=== PATIENT | female | born 1960 | race Caucasian/White ===

== ENCOUNTER 2022-11-20 11:00 | Inpatient (IN) | payer MEDICAID ==
[~2022-11-20] VITALS: Ht 165.1 cm; Wt 119.7 kg
[2022-11-20] MEDS: CLINDAMYCIN HCL 150MG CAPSULE PO SCH (06:00)
[2022-11-20 11:38] LABS: HEMATOCRIT. 37.2 % (36.0-48.0); HEMOGLOBIN. 12.7 g/dL (12.0-16.0); MEAN CORPUSCULAR HEMOGLOBIN 31.1 pg (28.0-32.0); MEAN CORPUSCULAR VOLUME 91.4 fL (81.0-99.0); MEAN PLATELET VOLUME 8.9 fl (7.4-10.4); PLATELET 226 x1000/uL (130-400); RED BLOOD CELL COUNT 4.07 mill/uL (4.2-5.4); RED CELL DISTRIBUTION WIDTH 12.6 % (11.6-14.6)
[2022-11-20 12:03] LABS: CHLORIDE 90 mEq/L (98-107)
[2022-11-20] MEDS ORDERED: SODIUM CHLORIDE 0.9% 1,000 ML IV SCH (12:30)
[2022-11-20] MEDS ORDERED: PIPERACILLIN/TAZOBACTAM 3.375GM/50ML PREMIX IV SCH (12:30)
[2022-11-20] MEDS ORDERED: VANCOMYCIN 1G PREMIX 200 ML IV SCH (12:30)
[2022-11-20 12:34] LABS: PLATELET ESTIMATE NORMAL
[2022-11-20] MEDS ORDERED: ONDANSETRON HCL 4MG/2ML INJ IV ONE (12:45)
[2022-11-20] MEDS ORDERED: MORPHINE SULFATE 4 MG/ML CPJ (NOT FOR IM USE) IV ONE (12:45)
[2022-11-20] MEDS ORDERED: SODIUM CHLORIDE 0.9% 1,000 ML IV ONE ×2 (12:45→13:00)
[2022-11-20] MEDS ORDERED: POTASSIUM CHLORIDE INJ 40 MEQ in DEXT 5% WATER 250 ML IV SCH (13:00)
[2022-11-20 13:01] LABS: INR 1.3; PROTHROMBIN TIME 13.5 sec (9.6-11.0)
[2022-11-20 14:26] LABS: BETA HYDROXYBUTYRATE 2.1 mMol/L (0.0-0.3)
[2022-11-20 15:25] LABS: CLARITY URINE CLOUDY (CLEAR); COLOR URINE YELLOW (YELLOW); KETONES URINE 2+ (NEGATIVE); LEUKOCYTE ESTERASE URINE NEGATIVE (NEGATIVE); NITRITE URINE NEGATIVE (NEGATIVE); OCCULT BLOOD URINE TRACE (NEGATIVE); PH URINE 5.5 (4.5-8.0); PROTEIN URINE 2+ (NEGATIVE); SPECIFIC GRAVITY URINE 1.037 (1.005-1.030)
[2022-11-20] MEDS ORDERED: INSULIN REGULAR (HUMULIN R) 300UNITS/3ML VIAL SUBCUT NR (17:15)
[2022-11-20] MEDS ORDERED: MAGNESIUM/ALUMINUM HYDROXIDE/SIMETHICONE 30ML UDC PO PRN (17:30)
[2022-11-20] MEDS ORDERED: HYDROCODONE/ACETAMINOPHEN 5/325MG TABLET PO PRN (17:30)
[2022-11-20] MEDS ORDERED: NA PHOS,M-B/NA PHOS,DI-BA ENEMA 118ML PR PRN (17:30)
[2022-11-20] MEDS ORDERED: CLONIDINE 0.1MG TABLET PO PRN (17:30)
[2022-11-20] MEDS ORDERED: ACETAMINOPHEN 325MG TABLET PO PRN ×2 (17:30)
[2022-11-20] MEDS ORDERED: DEXTROSE 50% WATER 50ML SYRINGE IV PRN (17:30)
[2022-11-20] MEDS ORDERED: GUAIFENESIN 200MG/10ML SUGAR FREE UDC PO PRN (17:30)
[2022-11-20] MEDS ORDERED: IPRATROPIUM/ALBUTEROL 0.5-3(2.5)MG/3ML NEB NEB PRN (17:30)
[2022-11-20] MEDS: ENOXAPARIN 30MG/0.3ML SYR SUBCUT SCH (18:27)
[2022-11-20] MEDS: SODIUM CHLORIDE 0.9% 1,000 ML IV SCH (18:27)
[2022-11-20] MEDS ORDERED: CLINDAMYCIN 600 MG in DEXTROSE 5% WATER 50 ML IV ONE (21:00)
[2022-11-20] MEDS ORDERED: PIPERACILLIN/TAZ 3.375G PREMIX 50 ML IV NR (22:00)
[2022-11-20] MEDS: BLOOD SUGAR DIAGNOSTIC STRIP TEST SCH (22:00)
[2022-11-20] MEDS ORDERED: PROPOFOL 200MG/20ML VIAL IV ONE (22:05)
[2022-11-20] MEDS: INSULIN LISPRO 100 UNITS/ML SUBCUT SCH (22:09)
[2022-11-20] MEDS ORDERED: MIDAZOLAM HCL 2 MG/2 ML VIAL ONE (22:09)
[2022-11-20] MEDS ORDERED: ONDANSETRON HCL 4MG/2ML INJ ONE (22:15)
[2022-11-20] MEDS ORDERED: SUCCINYLCHOLINE CHLORIDE 200MG/10ML IV ONE (22:16)
[2022-11-20] MEDS ORDERED: DEXAMETHASONE 4MG/ML 1ML VIAL ONE (22:16)
[2022-11-20] MEDS ORDERED: ALBUMIN HUMAN 12.5GM/50ML (25%) IV ONE (22:46)
[2022-11-20] MEDS ORDERED: ROCURONIUM BROMIDE 10MG/ML VIAL 5ML IV ONE (22:59)
[2022-11-20] MEDS ORDERED: FENTANYL CITRATE/PF 50MCG/ML 2ML VIAL ONE (23:07)
[2022-11-20] MEDS ORDERED: FENTANYL CITRATE/PF 50MCG/ML 2ML VIAL IV PRN (23:45)
[2022-11-21] VITALS (57 sets, daily range): BP systolic 120–189; BP diastolic 48–142
[2022-11-21] MEDS ORDERED: VANCOMYCIN 750MG PREMIX 150 ML IV SCH
[2022-11-21] MEDS ORDERED: VANCOMYCIN 750 MG in DEXT 5% WATER 250 ML IV SCH ×2
[2022-11-21] MEDS: PROPOFOL 10MG/ML 100ML 100 ML IV PRN ×4 (00:14→10:05)
[2022-11-21 01:09] LABS: BG BASE EXCESS -4.9 mmol/L (-2.0-2.0); BG CARBOXYHEMOGLOBIN 0.3 % (0.5-1.5); BG DEOXYHEMOGLOBIN 1.4 % (0.0-5.0); BG FRACTION INSPIRED OXYGEN 100; BG METHEMOGLOBIN 0.3 % (0.0-1.5); BG OXYGEN SATURATION 98.6 % (92.0-98.5); BG PCO2 47.9 mmHg (35.0-45.0); BG PO2 154.3 mmHg (75.0-100.0); BG SAMPLE SITE RIGHT RADIAL; BG TOTAL HEMOGLOBIN 13.4 g/dL (12.0-18.0); BG TOTAL RESPIRATORY RATE 14 b/min; BG VENT MODE VENT - AC
[2022-11-21] MEDS: SODIUM CHLORIDE 0.9% 1,000 ML IV SCH ×4 (01:31→20:54)
[2022-11-21] MEDS ORDERED: SODIUM BICARBONATE 8.4% 1 MEQ/ML 50ML SYR IV NR (04:00)
[2022-11-21 04:57] LABS: HEMATOCRIT. 32.1 % (36.0-48.0); HEMOGLOBIN. 10.6 g/dL (12.0-16.0); MEAN CORPUSCULAR HEMOGLOBIN 30.6 pg (28.0-32.0); MEAN CORPUSCULAR VOLUME 92.2 fL (81.0-99.0); MEAN PLATELET VOLUME 9.3 fl (7.4-10.4); PLATELET 189 x1000/uL (130-400); RED BLOOD CELL COUNT 3.48 mill/uL (4.2-5.4); RED CELL DISTRIBUTION WIDTH 12.8 % (11.6-14.6)
[2022-11-21 05:03] LABS: CHLORIDE 97 mEq/L (98-107)
[2022-11-21 05:12] LABS: HDL CHOLESTEROL 9 mg/dL (40-59); LDL CHOLESTEROL 39 mg/dL (5-100); PHOSPHORUS 2.6 mg/dL (2.5-4.9)
[2022-11-21] MEDS: BLOOD SUGAR DIAGNOSTIC STRIP TEST SCH ×6 (05:32→20:48)
[2022-11-21] MEDS: ENOXAPARIN 30MG/0.3ML SYR SUBCUT SCH ×2 (05:41→18:15)
[2022-11-21] MEDS ORDERED: PIPERACILLIN/TAZOBACTAM 3.375 G in DEXTROSE 5% WATER 50 ML IV SCH (06:00)
[2022-11-21] MEDS: CLINDAMYCIN HCL 150MG CAPSULE PO SCH ×3 (06:00→20:54)
[2022-11-21] MEDS: INSULIN LISPRO 100 UNITS/ML SUBCUT SCH ×7 (06:03→22:00)
[2022-11-21 07:10] LABS: PLATELET ESTIMATE NORMAL
[2022-11-21 08:07] LABS: BG BASE EXCESS -1.9 mmol/L (-2.0-2.0); BG CARBOXYHEMOGLOBIN 0.2 % (0.5-1.5); BG DEOXYHEMOGLOBIN 3.7 % (0.0-5.0); BG HCO3 ACT 21.8 mmol/L (22.0-26.0); BG METHEMOGLOBIN 0.1 % (0.0-1.5); BG OXYGEN SATURATION 96.3 % (92.0-98.5); BG PCO2 33.5 mmHg (35.0-45.0); BG PH 7.432 (7.350-7.450); BG PO2 82.4 mmHg (75.0-100.0); BG SAMPLE SITE RIGHT RADIAL; BG TOTAL HEMOGLOBIN 11.1 g/dL (12.0-18.0); BG VENT MODE VENT - AC
[2022-11-21] MEDS: INSULIN GLARGINE 100 UNITS/ML SUBCUT SCH ×2 (08:42→11:10)
[2022-11-21] MEDS ORDERED: INSULIN LISPRO 100 UNITS/ML SUBCUT ONE (08:45)
[2022-11-21] MEDS ORDERED: NALOXONE HCL 0.4MG/ML VIAL IV PRN (10:00)
[2022-11-21 11:50] LABS: BG BASE EXCESS 0.5 mmol/L (-2.0-2.0); BG CARBOXYHEMOGLOBIN 0.2 % (0.5-1.5); BG DEOXYHEMOGLOBIN 3.9 % (0.0-5.0); BG OXYGEN SATURATION 96.1 % (92.0-98.5); BG OXYHEMOGLOBIN 95.9 % (94.0-97.0); BG PH 7.414 (7.350-7.450); BG PO2 82.3 mmHg (75.0-100.0); BG SAMPLE SITE RIGHT RADIAL; BG TOTAL HEMOGLOBIN 11.7 g/dL (12.0-18.0); BG VENT MODE VENT - CPAP
[2022-11-21] MEDS: PIPERACILLIN/TAZOBACTAM 3.375 G in DEXTROSE 5% WATER 50 ML IV SCH ×2 (14:01→22:06)
[2022-11-21] MEDS: PANTOPRAZOLE SODIUM 40 MG/VIAL IV SCH (14:03)
[2022-11-21] MEDS: MORPHINE SULFATE 2 MG/ML CPJ (NOT FOR IM USE) IV PRN (16:16)
[2022-11-21] MEDS: VANCOMYCIN 750MG PREMIX 150 ML IV SCH (18:14)
[2022-11-22] VITALS (25 sets, daily range): BP systolic 84–153; BP diastolic 24–100
[2022-11-22] MEDS ORDERED: BLOOD SUGAR DIAGNOSTIC STRIP TEST SCH
[2022-11-22] MEDS ORDERED: INSULIN LISPRO 100 UNITS/ML SUBCUT SCH
[2022-11-22] MEDS: BLOOD SUGAR DIAGNOSTIC STRIP TEST SCH ×7 (00:06→20:52)
[2022-11-22] MEDS: INSULIN LISPRO 100 UNITS/ML SUBCUT SCH ×11 (00:11→20:52)
[2022-11-22] MEDS: SODIUM CHLORIDE 0.9% 1,000 ML IV SCH ×4 (02:03→23:00)
[2022-11-22 04:37] LABS: HEMATOCRIT. 30.4 % (36.0-48.0); HEMOGLOBIN. 10.4 g/dL (12.0-16.0); MEAN CORPUSCULAR HEMOGLOBIN 31.4 pg (28.0-32.0); MEAN CORPUSCULAR VOLUME 91.7 fL (81.0-99.0); PLATELET 207 x1000/uL (130-400); RED BLOOD CELL COUNT 3.31 mill/uL (4.2-5.4); RED CELL DISTRIBUTION WIDTH 12.9 % (11.6-14.6)
[2022-11-22] MEDS: MORPHINE SULFATE 2 MG/ML CPJ (NOT FOR IM USE) IV PRN ×3 (04:49→22:42)
[2022-11-22 05:02] LABS: CHLORIDE 102 mEq/L (98-107)
[2022-11-22 05:15] LABS: PHOSPHORUS 1.9 mg/dL (2.5-4.9)
[2022-11-22] MEDS: VANCOMYCIN 750MG PREMIX 150 ML IV SCH (05:23)
[2022-11-22] MEDS: CLINDAMYCIN HCL 150MG CAPSULE PO SCH ×3 (06:23→22:18)
[2022-11-22] MEDS: ENOXAPARIN 30MG/0.3ML SYR SUBCUT SCH ×2 (06:24→17:35)
[2022-11-22] MEDS: PIPERACILLIN/TAZOBACTAM 3.375 G in DEXTROSE 5% WATER 50 ML IV SCH ×3 (06:24→22:18)
[2022-11-22 07:26] LABS: NUCLEATED RED BLOOD CELLS 1 /100 WBC
[2022-11-22 07:27] LABS: PLATELET ESTIMATE NORMAL
[2022-11-22] MEDS: PANTOPRAZOLE SODIUM 40 MG/VIAL IV SCH (09:10)
[2022-11-22] MEDS: POTASSIUM CHLORIDE 20MEQ TABLET SR PO SCH ×2 (09:11→14:28)
[2022-11-22] MEDS: POTASSIUM-SODIUM PHOSPHATE POWDER PACKET PO SCH ×2 (09:11→14:28)
[2022-11-22] MEDS ORDERED: SENNOSIDES/DOCUSATE SOD 8.6/50MG TABLET PO PRN (09:30)
[2022-11-22] MEDS: POLYETHYLENE GLYCOL 3350 (17GM) 1 DOSE PACK PO SCH (10:52)
[2022-11-22] MEDS: INSULIN GLARGINE 100 UNITS/ML SUBCUT SCH (10:53)
[2022-11-22] MEDS: THROAT LOZENGES-BENZOCAINE/MENTH/CETYLPYRD CL LOZENGES MM PRN (15:15)
[2022-11-22] MEDS: VANCOMYCIN 1G PREMIX 200 ML IV SCH (17:35)
[2022-11-22] MEDS ORDERED: MAGNESIUM HYDROXIDE 400MG/5ML 30ML UDC PO PRN (21:00)
[2022-11-23] MEDS: VANCOMYCIN 1G PREMIX 200 ML IV SCH ×2 (03:42→16:54)
[2022-11-23 04:00] VITALS: BP 123/70
[2022-11-23] MEDS: SODIUM CHLORIDE 0.9% 1,000 ML IV SCH ×4 (05:42→22:05)
[2022-11-23] MEDS: PIPERACILLIN/TAZOBACTAM 3.375 G in DEXTROSE 5% WATER 50 ML IV SCH ×3 (06:04→22:01)
[2022-11-23] MEDS: CLINDAMYCIN HCL 150MG CAPSULE PO SCH ×3 (06:05→22:04)
[2022-11-23] MEDS: ENOXAPARIN 30MG/0.3ML SYR SUBCUT SCH ×2 (06:05→17:52)
[2022-11-23] MEDS: BLOOD SUGAR DIAGNOSTIC STRIP TEST SCH ×4 (06:24→20:35)
[2022-11-23] MEDS: INSULIN LISPRO 100 UNITS/ML SUBCUT SCH ×7 (06:25→21:00)
[2022-11-23 07:40] LABS: BASOPHILS % 0.1 % (0.0-2.0); EOSINOPHILS % 0.3 % (0.0-5.0); HEMATOCRIT. 30.4 % (36.0-48.0); HEMOGLOBIN. 10.3 g/dL (12.0-16.0); LYMPHOCYTES % 13.6 % (20.0-50.0); MEAN CORPUSCULAR HEMOGLOBIN 31.5 pg (28.0-32.0); MEAN CORPUSCULAR VOLUME 92.9 fL (81.0-99.0); MEAN PLATELET VOLUME 8.7 fl (7.4-10.4); PLATELET 212 x1000/uL (130-400); RED BLOOD CELL COUNT 3.27 mill/uL (4.2-5.4); RED CELL DISTRIBUTION WIDTH 13.3 % (11.6-14.6)
[2022-11-23 07:47] LABS: CHLORIDE 108 mEq/L (98-107)
[2022-11-23 07:51] LABS: PHOSPHORUS 2.3 mg/dL (2.5-4.9)
[2022-11-23] MEDS: POLYETHYLENE GLYCOL 3350 (17GM) 1 DOSE PACK PO SCH (07:59)
[2022-11-23] MEDS: PANTOPRAZOLE SODIUM 40 MG/VIAL IV SCH (07:59)
[2022-11-23 08:00] VITALS: BP 148/69
[2022-11-23] MEDS: MORPHINE SULFATE 2 MG/ML CPJ (NOT FOR IM USE) IV PRN (08:06)
[2022-11-23 09:07] LABS: HEPATITIS B SURFACE ANTIGEN NEGATIVE
[2022-11-23] MEDS: INSULIN GLARGINE 100 UNITS/ML SUBCUT SCH (10:52)
[2022-11-23 12:00] VITALS: BP 156/74
[2022-11-23] MEDS: THROAT LOZENGES-BENZOCAINE/MENTH/CETYLPYRD CL LOZENGES MM PRN (14:50)
[2022-11-23 16:00] VITALS: BP 158/76
[2022-11-23 20:00] VITALS: BP 124/63
[2022-11-23 23:27] VITALS: BP 134/80
[2022-11-24 04:00] VITALS: BP 154/77
[2022-11-24] MEDS: ENOXAPARIN 30MG/0.3ML SYR SUBCUT SCH ×3 (06:00→21:23)
[2022-11-24] MEDS: BLOOD SUGAR DIAGNOSTIC STRIP TEST SCH ×4 (06:31→21:23)
[2022-11-24] MEDS: PIPERACILLIN/TAZOBACTAM 3.375 G in DEXTROSE 5% WATER 50 ML IV SCH ×3 (06:50→22:18)
[2022-11-24] MEDS: VANCOMYCIN 1G PREMIX 200 ML IV SCH ×2 (06:50→16:18)
[2022-11-24] MEDS: CLINDAMYCIN HCL 150MG CAPSULE PO SCH ×3 (06:51→22:15)
[2022-11-24] MEDS: INSULIN LISPRO 100 UNITS/ML SUBCUT SCH ×7 (07:20→21:00)
[2022-11-24] MEDS: MORPHINE SULFATE 2 MG/ML CPJ (NOT FOR IM USE) IV PRN (07:23)
[2022-11-24] MEDS ORDERED: ONDANSETRON HCL 4MG/2ML INJ IV PRN (07:45)
[2022-11-24] MEDS: FAMOTIDINE 20MG TABLET PO SCH ×2 (08:23→21:19)
[2022-11-24] MEDS: POLYETHYLENE GLYCOL 3350 (17GM) 1 DOSE PACK PO SCH (08:23)
[2022-11-24 09:43] VITALS: BP 180/97
[2022-11-24] MEDS ORDERED: INSULIN GLARGINE 100 UNITS/ML SUBCUT SCH (10:00)
[2022-11-24] MEDS ORDERED: THROAT LOZENGES-BENZOCAINE/MENTH/CETYLPYRD CL LOZENGES MM SCH (11:00)
[2022-11-24] MEDS: SODIUM CHLORIDE 0.9% 1,000 ML IV SCH (13:02)
[2022-11-24 15:41] VITALS: BP 124/85
[2022-11-24 16:01] LABS: CHLORIDE 108 mEq/L (98-107)
[2022-11-24 16:06] LABS: BASOPHILS % 0.3 % (0.0-2.0); EOSINOPHILS % 1.2 % (0.0-5.0); HEMATOCRIT. 31.6 % (36.0-48.0); HEMOGLOBIN. 10.8 g/dL (12.0-16.0); LYMPHOCYTES % 15.2 % (20.0-50.0); MEAN CORPUSCULAR HEMOGLOBIN 31.8 pg (28.0-32.0); MEAN CORPUSCULAR VOLUME 92.7 fL (81.0-99.0); MONOCYTES % 7.8 % (2.0-8.0); NEUTROPHILS % 75.5 % (40.0-76.0); PLATELET 282 x1000/uL (130-400); RED BLOOD CELL COUNT 3.41 mill/uL (4.2-5.4); RED CELL DISTRIBUTION WIDTH 13.4 % (11.6-14.6)
[2022-11-24 19:56] VITALS: BP 106/75
[2022-11-25] VITALS (8 sets, daily range): BP systolic 132–179; BP diastolic 75–88
[2022-11-25] MEDS: VANCOMYCIN 1G PREMIX 200 ML IV SCH ×2 (03:11→16:29)
[2022-11-25 05:36] LABS: HEMATOCRIT. 29.7 % (36.0-48.0); MEAN CORPUSCULAR HEMOGLOBIN 31.1 pg (28.0-32.0); MEAN CORPUSCULAR VOLUME 92.2 fL (81.0-99.0); MEAN PLATELET VOLUME 7.6 fl (7.4-10.4); PLATELET 281 x1000/uL (130-400); RED BLOOD CELL COUNT 3.22 mill/uL (4.2-5.4); RED CELL DISTRIBUTION WIDTH 13.4 % (11.6-14.6)
[2022-11-25] MEDS: CLINDAMYCIN HCL 150MG CAPSULE PO SCH ×2 (05:56→14:35)
[2022-11-25] MEDS: PIPERACILLIN/TAZOBACTAM 3.375 G in DEXTROSE 5% WATER 50 ML IV SCH ×2 (06:02→14:35)
[2022-11-25 06:22] LABS: CHLORIDE 105 mEq/L (98-107)
[2022-11-25] MEDS: BLOOD SUGAR DIAGNOSTIC STRIP TEST SCH ×3 (06:39→16:50)
[2022-11-25 07:14] LABS: PLATELET ESTIMATE NORMAL
[2022-11-25] MEDS: INSULIN LISPRO 100 UNITS/ML SUBCUT SCH ×6 (07:20→18:20)
[2022-11-25] MEDS: POLYETHYLENE GLYCOL 3350 (17GM) 1 DOSE PACK PO SCH (08:59)
[2022-11-25] MEDS: FAMOTIDINE 20MG TABLET PO SCH (09:05)
[2022-11-25] MEDS: ENOXAPARIN 30MG/0.3ML SYR SUBCUT SCH (09:05)
[2022-11-25] MEDS ORDERED: INSULIN GLARGINE 100 UNITS/ML SUBCUT SCH (10:00)
[2022-11-25] MEDS ORDERED: LANC-493 TP (15:41)
[2022-11-25] MEDS ORDERED: TOPUD PO (15:41)
[2022-11-25] MEDS ORDERED: EMPA10TA MT (15:41)
[2022-11-25] MEDS ORDERED: DOXY100T2 PO (15:41)
[2022-11-25] MEDS ORDERED: AMOX1TAB16 PO (15:41)
[2022-11-25] MEDS ORDERED: INSU100I28 SQ (15:41)
[2022-11-25] MEDS ORDERED: HYDROCODONE/ACETAMINOPHEN 5/325MG TABLET PO PRN (19:03)
== END 2022-11-25 22:29 | disposition home or self-care (01) | DRG 710 ==
LOC: ER 11:00 → 7WST 15:18 → EDBEDREQ 15:23 → SUPCPDRO 15:40 → ENRESERV 21:06 → MICUSO 23:55 → 3WST 11-22 12:07
PROVIDERS: ADMIT Internal Medicine; ATTEND Internal Medicine
PROC: 0JBC0ZZ Excision of Pelvic Region Subcutaneous Tissue and Fascia, Open Approach (ICD-10-PCS; principal; 2022-11-20)
PROC: 0J9B0ZZ Drainage of Perineum Subcutaneous Tissue and Fascia, Open Approach (ICD-10-PCS; 2022-11-20)
PROC: 5A1935Z Respiratory Ventilation, Less than 24 Consecutive Hours (ICD-10-PCS; 2022-11-21)
DX: A41.9 Sepsis, unspecified organism (principal); J96.00 Acute respiratory failure, unspecified whether with hypoxia or hypercapnia; E44.0 Moderate protein-calorie malnutrition; R65.20 Severe sepsis without septic shock; B96.89 Other specified bacterial agents as the cause of diseases classified elsewhere; E66.01 Morbid (severe) obesity due to excess calories; E11.65 Type 2 diabetes mellitus with hyperglycemia; L02.215 Cutaneous abscess of perineum; E87.1 Hypo-osmolality and hyponatremia; Z68.30 Body mass index [BMI] 30.0-30.9, adult; N76.82 Fournier disease of vagina and vulva; N76.2 Acute vulvitis; E83.39 Other disorders of phosphorus metabolism; E87.6 Hypokalemia; E88.09 Other disorders of plasma-protein metabolism, not elsewhere classified; I11.9 Hypertensive heart disease without heart failure; K76.0 Fatty (change of) liver, not elsewhere classified
CPT/HCPCS: 36415; 36573; 36600; 71045; 73700; 74176; 80048; 80053; 80061; 80202; 81003; 82010; 82375; 82805; 82962; 83036; 83605; 83735; 84100; 84145; 84484; 85025; 86803; 86850; 86900; 87070; 87075; 87186; 87340; 87426; 88304; 92610; 93005; 94002; 94003; 97162; 99291; C1725; C9113; J0330; J1100; J1650; J1815; J2250; J2270; J2405; J2543; J2704; J3010; J3370; J3480; J3490; J7030; J7060; P9047